=== PATIENT | female | born 1980 | race American Indian/Alaskan Native ===

== ENCOUNTER 2020-09-03 15:28 | Emergency (ER) | payer BC ==
--- NOTE | 2020-09-03 15:42 | Event Note ---
ED Screening Note Date of service: 09/03/20 Time: 15:41 ED Screening Note: Patient complains of mid/upper abdominal pain, chest pain, and back pain x5 days Denies prior medical history This initial assessment/diagnostic orders/clinical plan/treatment(s) is/are subject to change based on patients health status, clinical progression and re- assessment by fellow clinical providers in the ED. Further treatment and workup at subsequent clinical providers discretion. Patient/guardian urged not to elope from the ED as their condition may be serious if not clinically assessed and managed. Initial orders include: Labs EKG Chest x-ray
--- NOTE | 2020-09-03 16:06 | XRay Report ---
XR chest routine 2V INDICATION / CLINICAL INFORMATION: chest pain COMPARISON: None available. FINDINGS: SUPPORT DEVICES: None. HEART / MEDIASTINUM: No significant abnormality. LUNGS / PLEURA: Lungs are clear. Costophrenic sulci are sharp. No pneumothorax. ADDITIONAL FINDINGS: No significant additional findings. IMPRESSION: 1. No acute findings. Signer Name: Marck Munson MD Signed: 09/03/2020 4:02 PM Workstation Name: [id number]
[2020-09-03 17:01] LABS: Alanine Aminotransferase 20 units/L (7-56); Albumin 3.7 g/dL (3.9-5); BUN/Creatinine Ratio 10; Blood Urea Nitrogen 10 mg/dL (7-17); Calcium 9.1 mg/dL (8.4-10.2); Hemolysis Index 6
[2020-09-03 17:14] LABS: Basophils # (Auto) 0.1 K/mm3 (0.0-0.1); Basophils % (Auto) 0.3 % (0.0-1.8); Eosinophils # (Auto) 0.1 K/mm3 (0.0-0.4); Eosinophils % (Auto) 0.7 % (0.0-4.3); Hematocrit 40.1 % (30.3-42.9); Hemoglobin 13.3 gm/dl (10.1-14.3); Lymphocytes # (Auto) 4.2 K/mm3 (1.2-5.4); Lymphocytes % (Auto) 23.4 % (13.4-35.0); Mean Corpuscular HGB Conc 33 % (30-34); Mean Corpuscular Volume 96 fl (79-97); Monocytes # (Auto) 1.9 K/mm3 (0.0-0.8); Monocytes % (Auto) 10.5 % (0.0-7.3); Platelet Count 331 K/mm3 (140-440); Red Blood Count 4.18 M/mm3 (3.65-5.03); Red Cell Distribution Width 14.3 % (13.2-15.2)
[2020-09-03] MEDS ORDERED: MORPHINE 4 MG/1 ML INJ IV ONE (19:47)
[2020-09-03] MEDS ORDERED: ONDANSETRON 4 MG/2 ML INJ IV ONE (19:47)
[2020-09-03] MEDS ORDERED: SODIUM CHLORIDE 0.9% 1000 ML 1,000 ML IV ONE (19:47)
[2020-09-03 20:33] LABS: HCG Qualitative,Urine Negative (Negative)
[2020-09-03 20:59] LABS: Bacteria,Urine 1+ /HPF (Negative); Mucus,Urine FEW /HPF
--- NOTE | 2020-09-03 21:31 | Cat Scan Report ---
CT abdomen pelvis w con INDICATION / CLINICAL INFORMATION: abdominal pain - LLQ. TECHNIQUE: All CT scans at this location are performed using CT dose reduction for ALARA by means of automated e xposure control. COMPARISON: None available. FINDINGS: No free fluid is seen in the abdomen. The liver, spleen, kidneys, pancreas, adrenal glands and great vessels are normal. No enlarged mesenteric or retroperitoneal lymph nodes are seen. In the pelvis, no free fluid is seen. Mild proximal sigmoid diverticulitis is present. There is no ev idence of an abscess or free air at this time. No enlarged lymph nodes are identified. The bladder an d the appendix are normal. No significant skeletal abnormality is seen. IMPRESSION: Mild proximal sigmoid diverticulitis without evidence of an abscess or free air at this time Signer Name: Deon Sandoval MD FACR Signed: 09/03/2020 9:26 PM Workstation Name: [id number]
[2020-09-03 21:35] LABS: Color,Urine Yellow (Yellow); Protein,Urine <30 mg dL mg/dL (Negative); Urobilinogen,Urine < 2.0 mg/dL (<2.0)
[2020-09-03 21:36] LABS: Ictotest,Urine Negative (Negative)
[2020-09-03] MEDS ORDERED: metroNIDAZOLE/NS 500 MG/100 ML 500 MG/100 ML BAG IV ONE (22:01)
[2020-09-03] MEDS ORDERED: levoFLOXacin 500 MG TAB PO ONE (22:01)
--- NOTE | 2020-09-03 22:12 | Emergency Department Report ---
ED Abdominal Pain HPI - General Chief Complaint: Abdominal Pain Stated Complaint: CHEST PAINS Time Seen by Provider: 09/03/20 15:40 Source: patient Mode of arrival: Ambulatory Limitations: No Limitations - History of Present Illness Initial Comments: Patient is a 40-year-old -[place] female with no past medical history presents to the ED with complaint of acute onset persistent diffuse lower abdominal pain that radiates to the left lower quadrant and right lower quadrant as well as low back with nausea for the last 2 days. Patient states that the pain got worse in the last 8 hours likely any movement makes the pain worse. Patient denies dysuria, urinary frequency and urgency, vaginal bleeding, vaginal discharge, dyspareunia, dizziness, syncope, fever, chills, cough, vomiting, diarrhea, chest pain or shortness of breath, neck pain, chest pain, heavy lifting, fall, traumatic injury or sore throat. MD Complaint: abdominal pain (lower abdominal pain, radiates to lower back) -: Sudden, days(s) (2) Location: LLQ, RLQ, suprapubic, R flank Radiation: LLQ, RLQ, suprapubic Migration to: no migration Severity: severe Severity scale (0 -10): 8 Quality: cramping, aching, sharp Consistency: constant Improves With: nothing Worsens With: movement Associated Symptoms: denies other symptoms. denies: nausea, vomiting, diarrhea, fever, chills, constipation, dysuria, hematemesis, hematochezia, melena, anorexia, syncope - Related Data LMP Date: 08/22/20 Previous Rx's Medication Instructions Recorded Last Taken Type Ciprofloxacin HCl [Ciprofloxacin 500 mg PO Q12HR #20 tab 09/03/20 Unknown Rx TAB] Docusate Sodium [Colace CAP] 100 mg PO BID PRN #60 capsule 09/03/20 Unknown Rx Ibuprofen [Motrin] 800 mg PO Q8HR PRN #30 tablet 09/03/20 Unknown Rx Ondansetron [Zofran Odt] 4 mg PO Q6HR PRN #20 tab.rapdis 09/03/20 Unknown Rx metroNIDAZOLE [Flagyl] 500 mg PO Q8HR #30 tablet 09/03/20 Unknown Rx traMADoL [Ultram] 50 mg PO Q6HR PRN #12 tablet 09/03/20 Unknown Rx Allergies Allergy/AdvReac Type Severity Reaction Status Date / Time No Known Allergies Allergy Unverified 09/03/20 15:39 ED Review of Systems ROS: Stated complaint: CHEST PAINS Other details as noted in HPI Constitutional: denies: chills, fever Eyes: denies: eye pain, eye discharge, vision change ENT: denies: ear pain, throat pain Respiratory: denies: cough, shortness of breath, wheezing Cardiovascular: denies: chest pain, palpitations Endocrine: no symptoms reported Gastrointestinal: abdominal pain. denies: nausea, vomiting, diarrhea Genitourinary: denies: urgency, dysuria, discharge Musculoskeletal: back pain (lower back pain). denies: joint swelling, arthralgia Skin: denies: rash, lesions Neurological: denies: headache, weakness, paresthesias Psychiatric: denies: anxiety, depression Hematological/Lymphatic: denies: easy bleeding, easy bruising ED Past Medical Hx - Past Medical History Previous Medical History?: No - Surgical History Past Surgical History?: Yes Additional Surgical History: Tubal ligation. C section - Social History Smoking Status: Current Every Day Smoker Substance Use Type: None - Medications Home Medications: Home Medications Medication Instructions Recorded Confirmed Last Taken Type Ciprofloxacin HCl [Ciprofloxacin 500 mg PO Q12HR #20 tab 09/03/20 Unknown Rx TAB] Docusate Sodium [Colace CAP] 100 mg PO BID PRN #60 capsule 09/03/20 Unknown Rx Ibuprofen [Motrin] 800 mg PO Q8HR PRN #30 tablet 09/03/20 Unknown Rx Ondansetron [Zofran Odt] 4 mg PO Q6HR PRN #20 tab.rapdis 09/03/20 Unknown Rx metroNIDAZOLE [Flagyl] 500 mg PO Q8HR #30 tablet 09/03/20 Unknown Rx traMADoL [Ultram] 50 mg PO Q6HR PRN #12 tablet 09/03/20 Unknown Rx ED Physical Exam - General Limitations: No Limitations General appearance: alert, in no apparent distress - Head Head exam: Present: atraumatic, normocephalic, normal inspection - Eye Eye exam: Present: normal appearance, PERRL, EOMI Pupils: Present: normal accommodation - ENT ENT exam: Present: normal exam, normal orophraynx, mucous membranes moist, TM's normal bilaterally, normal external ear exam - Neck Neck exam: Present: normal inspection, full ROM - Respiratory Respiratory exam: Present: normal lung sounds bilaterally. Absent: respiratory distress, wheezes, rales, rhonchi, chest wall tenderness, accessory muscle use, prolonged expiratory - Cardiovascular Cardiovascular Exam: Present: normal rhythm, tachycardia, normal heart sounds. Absent: systolic murmur, diastolic murmur, rubs, gallop - GI/Abdominal GI/Abdominal exam: Present: soft, tenderness (Palpable diffuse lower abdominal tenderness, worse in the LLQ area), normal bowel sounds. Absent: guarding, rebound, hyperactive bowel sounds, hypoactive bowel sounds, organomegaly - Extremities Exam Extremities exam: Present: normal inspection, full ROM, normal capillary refill - Back Exam Back exam: Present: normal inspection, full ROM, tenderness (Palpable lumbosacral paraspinal tenderness), muscle spasm, paraspinal tenderness. Absent: CVA tenderness (R), CVA tenderness (L), vertebral tenderness - Neurological Exam Neurological exam: Present: alert, oriented X3, CN II-XII intact, normal gait, reflexes normal - Psychiatric Psychiatric exam: Present: normal affect, normal mood - Skin Skin exam: Present: warm, dry, intact, normal color. Absent: rash ED Course Vital Signs 09/03/20 09/03/20 16:04 22:26 Temperature 98.4 F Pulse Rate 114 H 87 Respiratory 16 18 Rate Blood Pressure 142/89 142/79 [Right] O2 Sat by Pulse 96 98 Oximetry ED Medical Decision Making - Lab Data Result diagrams: 09/03/20 16:27 09/03/20 16:27 - Radiology Data Radiology results: report reviewed, [place] [address] Cat Scan Report Signed Patient: JUSTIN MONTES DE OCA MR#: [id number] : 1980 Acct:[id number] Age/Sex: 40 / F ADM Date: 09/03/20 Loc: ED Attending Dr: Ordering Physician: JULIO CESAR MICHAEL Date of Service: 09/03/20 Procedure(s): CT abdomen pelvis w con Accession Number(s): [id number] cc: JULIO CESAR MICHAEL CT abdomen pelvis w con INDICATION / CLINICAL INFORMATION: abdominal pain - LLQ. TECHNIQUE: All CT scans at this location are performed using CT dose reduction for ALARA by means of automated exposure control. COMPARISON: None available. FINDINGS: No free fluid is seen in the abdomen. The liver, spleen, kidneys, pancreas, adrenal glands and great vessels are normal. No enlarged mesenteric or retroperitoneal lymph nodes are seen. In the pelvis, no free fluid is seen. Mild proximal sigmoid diverticulitis is present. There is no evidence of an abscess or free air at this time. No enlarged lymph nodes are identified. The bladder and the appendix are normal. No significant skeletal abnormality is seen. IMPRESSION: Mild proximal sigmoid diverticulitis without evidence of an abscess or free air at this time Signer Name: Deon Sandoval MD FACR Signed: 09/03/2020 9:26 PM Workstation Name: [id number] Transcribed By: MS Dictated By: Deon Sandoval MD Electronically Authenticated By: Deon Sandoval MD Signed Date/Time: 09/03/202125 DD/ 23 TD/TT: Findings [facility] [address] [place] [address] XRay Report Signed Patient: JUSTIN MONTES DE OCA MR#: [id number] : 1980 Acct:[id number] Age/Sex: 40 / F ADM Date: 09/03/20 Loc: ED Attending Dr: Ordering Physician: BEA VELA Date of Service: 09/03/20 Procedure(s): XR chest routine 2V Accession Number(s): [id number] cc: BEA VELA Fluoro Time In Minutes: XR chest routine 2V INDICATION / CLINICAL INFORMATION: chest pain COMPARISON: None available. FINDINGS: SUPPORT DEVICES: None. HEART / MEDIASTINUM: No significant abnormality. LUNGS / PLEURA: Lungs are clear. Costophrenic sulci are sharp. No pneumothorax. ADDITIONAL FINDINGS: No significant additional findings. IMPRESSION: 1. No acute findings. Signer Name: Marck Munson MD Signed: 09/03/2020 4:02 PM Workstation Name: [id number] Transcribed By: CS Dictated By: Marck Munson MD Electronically Authenticated By: Marck Munson MD Signed Date/Time: 09/03/201601 DD/ 00 TD/TT: Findings [facility] [address] [place] [address] Cat Scan Report Signed Patient: JUSTIN MONTES DE OCA MR#: [id number] : 1980 Acct:[id number] Age/Sex: 40 / F ADM Date: 09/03/20 Loc: ED Attending Dr: Ordering Physician: JULIO CESAR MICHAEL Date of Service: 09/03/20 Procedure(s): CT abdomen pelvis w con Accession Number(s): [id number] cc: JULIO CESAR MICHAEL CT abdomen pelvis w con INDICATION / CLINICAL INFORMATION: abdominal pain - LLQ. TECHNIQUE: All CT scans at this location are performed using CT dose reduction for ALARA by means of automated exposure control. COMPARISON: None available. FINDINGS: No free fluid is seen in the abdomen. The liver, spleen, kidneys, pancreas, adrenal glands and great vessels are normal. No enlarged mesenteric or retroperitoneal lymph nodes are seen. In the pelvis, no free fluid is seen. Mild proximal sigmoid diverticulitis is present. There is no evidence of an abscess or free air at this time. No enlarged lymph nodes are identified. The bladder and the appendix are normal. No significant skeletal abnormality is seen. IMPRESSION: Mild proximal sigmoid diverticulitis without evidence of an abscess or free air at this time Signer Name: Deon Sandoval MD FACR Signed: 09/03/2020 9:26 PM Workstation Name: [id number] Transcribed By: MS Dictated By: Deon Sandoval MD Electronically Authenticated By: Deon Sandoval MD Signed Date/Time: 09/03/202125 DD/ 23 TD/TT: - Medical Decision Making This is a 40-year-old -[place] female with no past medical history presents to the ED with complaint of acute onset persistent diffuse lower abdominal pain that radiates to the left lower quadrant and right lower quadrant as well as low back with nausea for the last 2 days. Patient states that the pain got worse in the last 8 hours likely any movement makes the pain worse. In the ED, patient is alert and oriented x3 and is not in any distress. Lab test results were reviewed and showed acute leukocytosis of 18,100, and the rest of the lab test results are nonactionable. Abdomen pelvis CT scan with contrast showed mild proximal sigmoid diverticulitis without evidence of an abscess or free air at this time. Patient was treated for pain in the ED and also received normal saline 1 L IV bolus, antiemetics and Levaquin 500 mg p.o. x1 and Flagyl 500 mg IV x1. On reevaluation, patient's pain is well controlled medications. Patient was discharged home on pain medications and antibiotics and was advised to follow-up with her primary care physician in 5 to 7 days for reevaluation or return to the ED immediately if symptoms get worse. Patient also given a referral to the GI physician Dr. Robyn Ruiz for follow-up in 5 to 7 days. - Differential Diagnosis UTI; Appendicitis; Diveriticulitis; Kidney stones; Fibroids; Ovarian cyst Critical care attestation.: If time is entered above; I have spent that time in minutes in the direct care of this critically ill patient, excluding procedure time. ED Disposition Clinical Impression: Acute abdominal pain in left lower quadrant, Acute diverticulitis Disposition: - TO HOME OR SELFCARE Is pt being admited?: No Does the pt Need Aspirin: No Condition: Stable Instructions: Diverticulitis, [id number], Abdominal Pain, Adult, [id number], Abdominal Pain (ED) Additional Instructions: Imaging report shows sigmoid diverticulitis infection in the abdomen portion of the rectum. Therefore take pain medications and antibiotics, drink plenty of fluids and follow-up with your primary care physician in 7 to 10 days for reevaluation. Consider following up with the GI physician Dr. Robyn Ruiz as advised, contact his office to schedule a follow-up appointment. Return to the ED immediately if your symptoms get worse. Prescriptions: Ciprofloxacin HCl [Ciprofloxacin TAB] 500 mg PO Q12HR #20 tab Docusate Sodium [Colace CAP] 100 mg PO BID PRN #60 capsule PRN Reason: Constipation metroNIDAZOLE [Flagyl] 500 mg PO Q8HR #30 tablet Ibuprofen [Motrin] 800 mg PO Q8HR PRN #30 tablet PRN Reason: Pain , Severe (7-10) traMADoL [Ultram] 50 mg PO Q6HR PRN #12 tablet PRN Reason: Pain Ondansetron [Zofran Odt] 4 mg PO Q6HR PRN #20 tab.rapdis PRN Reason: Nausea Referrals: [facility] [Provider Group] - 7-10 days ROBYN RUIZ MD [Staff Physician] - 7-10 days Time of Disposition: 22:16 Print Language: FRISIAN
[2020-09-03 22:27] VITALS: BP 142/79
== END 2020-09-04 00:10 | disposition home or self-care (01) ==
LOC: ED 15:28
DX: K57.90 Diverticulosis of intestine, part unspecified, without perforation or abscess without bleeding (principal); R10.30 Lower abdominal pain, unspecified; F17.200 Nicotine dependence, unspecified, uncomplicated; Z98.51 Tubal ligation status; Z98.890 Other specified postprocedural states; Z79.1 Long term (current) use of non-steroidal anti-inflammatories (NSAID); Z79.2 Long term (current) use of antibiotics; Z79.899 Other long term (current) drug therapy
CPT/HCPCS: 36415; 71046; 74177; 80053; 81001; 81025; 83690; 84484; 85025; 93005; 96361; 96365; 96375; 99284; J2270; J2405; J7030; Q9967